=== PATIENT | male | born 1980 | race Caucasian/White ===

== ENCOUNTER 2020-10-18 00:52 | Outpatient (CLI) | payer BC, SELFPAY ==
[2020-10-18 18:38] LABS: SARS-CoV-2 RNA PCR Negative
== END 2020-10-18 00:53 | disposition home or self-care (01) ==
LOC: ANHCOVIDDT 00:52
PROVIDERS: PCP Emergency Medicine; Visit Provider Internal Medicine Critical Care Medicine
DX: U07.1 COVID-19 (principal)
CPT/HCPCS: C9803; U0003

== ENCOUNTER 2020-10-21 09:47 | Outpatient (CLI) | payer BC, SELFPAY ==
--- NOTE | 2020-11-08 10:59 | WPDSLEEPSTUD ---
Sleep Study Date of Study: 10/21/20 Ordering Provider: Brenda Martin MD Interpreting Physician: Brenda Martin MD Sleep Study Type: CPAP Titration Height: 1.78 m Weight: 125.191 kg Body Mass Index: 39.6 Neck Circumference: 46.99 cm [place]: 15 Reason for Sleep Study Obstructive sleep apnea on CPAP, needs repeat titration Sleep History Holland Oh is a 40-year-old male who has a history of sleep apnea and has been on CPAP in the past. He has difficulty falling asleep, he has excessive daytime sleepiness and difficulty waking up in the morning. There is a positive family history with his father also being treated for sleep apnea. He constantly snores and is constantly loud enough that others complain about it. He occasionally awakens at night with heartburn, belching or coughing. He never awakens from sleep feeling short of breath. He does not have trouble sleeping with a cold. He rarely wakes up gasping for breath at night. his complains about his snoring. He constantly sweats excessively at night. He does not notice his heart pounding or beating irregularly night. He frequently falls asleep during the day, occasionally involuntarily but never while driving. He does not fall asleep while exerting physical effort. He does not have loss of muscle tone with strong emotion or have daytime difficulties due to excessive sleepiness. 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 He does not feel paralyzed on waking or falling asleep. He occasionally has vivid dreamlike scenes upon awakening or falling asleep. He is not afraid to go to sleep. He denies having nightmares. He frequently remembers his dreams. He occasionally has racing thoughts. He frequently feels sad depressed and anxious. He does not have muscular tension. He occasionally notices parts of his body jerking. He does not know if he kicks at night. He rarely has crawling and aching feelings in his legs at night. He does not have any kind of leg pain at night. He denies morning jaw pain and does not grind his teeth during sleep. He constantly is bothered by pain during the day. He has never awakened by pain at night. He rarely wakes up feeling stiff in the morning. He does not have sore achy muscles in the morning. He rarely has pain in the neck and spine on waking. He has fatigue, sexual problems and depression. Normal bedtime is between 11:30 p/m/ and 12:00 midnight falling asleep within an hour, waking up at maximum 2 times at night but sometimes he does not wake up at all overnight. He goes to the bathroom when he does wake at night. He wakes at 6:00 a.m. during the week. On weekends, he goes to bed between 10:00 - 10:30 p.m. waking at 6:00 a.m. on Saturdays and waking at 10:00 a.m. on Sundays. He takes naps in the afternoon or evening. A short nap is not refreshing. He is usually drowsy in the morning for 1 hour or longer. He feels better in the afternoon compared other times of day. Habits: tobacco 1 pack per day. Caffeine 3 per day, energy drinks or sodas. he does not drink alcohol. He does not use recreational drugs. [facility] Past Medical History Medical History (Updated 11/08/20 @ 11:21 by Brenda Martin MD) GERD (gastroesophageal reflux disease) High cholesterol Hyperlipidemia with low HDL Hypertriglyceridemia Obesity Obstructive sleep apnea Surgical History Surgical History (Updated 11/08/20 @ 11:19 by Brenda Martin MD) History of thumb surgery Right thumb, tumor removed Family History Family History (Updated 11/08/20 @ 11:03 by Brenda Martin MD) Father Diabetes mellitus Patient's father is in good health Family history of coronary artery disease Family history of neuropathy Obstructive sleep apnea Social History Social History Smoking status: Current every day smoker Alcohol intake: never Medications Home Medications Medication Instructions Recorded Con
[2020-11-08 11:34] VITALS: BMI 39.6
== END 2020-10-21 09:48 | disposition home or self-care (01) ==
LOC: ANHCSM 09:50
PROVIDERS: PCP Emergency Medicine; Visit Provider Internal Medicine Critical Care Medicine
DX: G47.33 Obstructive sleep apnea (adult) (pediatric) (principal); Z99.89 Dependence on other enabling machines and devices
CPT/HCPCS: 95811

== ENCOUNTER 2021-02-12 15:16 | Observation (INO) | payer BC, SELFPAY ==
[2021-02-12] VITALS (21 sets, daily range): BP systolic 115–153; BP diastolic 69–91; PULSE 65–85; RESP 16–23; TEMP 36.2–36.6; O2SAT 92–98; BMI 39.6
--- NOTE | ~2021-02-12 | XR_ITS ---
EXAMINATION: XR chest 2V DATE: 02/12/2021 17:01 INDICATION: Left-sided chest pain TECHNIQUE: PA and lateral views of the chest were obtained. COMPARISON: Chest radiograph dated 11/11/2018 FINDINGS: The lungs remain clear with no focal airspace opacities, pulmonary edema, pleural effusion or pneumot horax. The cardiomediastinal silhouette is normal. Mild thoracic spondylosis. IMPRESSION: 1. No acute cardiopulmonary disease. Reviewed, dictated and finalized at location A.
--- NOTE | 2021-02-12 16:27 | ECG_ITS ---
Measurements Intervals [place] Rate: 70 P: 43 DE: 153 QRS: 21 QRSD: 94 T: 37 QT: 366 QTc: 395 Interpretive Statements SINUS RHYTHM DELAYED PRECORDIAL R/S TRANSITION BORDERLINE ECG Electronically Signed On 02-12-2021 17:58:38 CDT by Santos Roy D.O.
[2021-02-12 16:44] LABS: Basophils Absolute Auto 0.1 K/mm3 (0.0-0.1); Basophils Percent Auto 0.5 % (0.2-1.2); Eosinophils Absolute Auto 0.5 K/mm3 (0-0.3); Eosinophils Percent Auto 4.6 % (0-4.4); Hemoglobin 14.1 g/dL (14.0-18.0); Immature Granulocyte Absolute 0.01 K/mm3 (0.00-0.031); Immature Granulocyte Percent A 0.1 % (0-0.5); Lymphocytes Absolute Auto 3.82 K/mm3 (0.9-3.2); Lymphocytes Percent Auto 36.3 % (18.3-44.2); Mean Corpuscular HGB Conc 32.8 g/dl (32-36); Mean Corpuscular Hemoglobin 27.8 pg (26-34); Mean Corpuscular Volume 84.6 fl (80-100); Mean Platelet Volume 9.3 fl (7.4-10.4); Monocytes Absolute Auto 0.8 K/mm3 (0.1-0.6); Monocytes Percent Auto 7.8 % (2.6-8.5); Neutrophils Absolute Auto 5.4 K/mm3 (1.3-6.7); Neutrophils Percent Auto 50.7 % (45.5-73.1); Platelet Count Result 266 k/mm3 (150-375); Red Blood Count 5.08 M/mm3 (4.6-6.20); Red Cell Distribution Width 13.8 % (11.5-14.5); White Blood Count 10.5 K/mm3 (4.5-10.0)
[2021-02-12 16:53] LABS: Anion Gap 4 mmol/L (8-16); Blood Urea Nitrogen 16 mg/dL (9-20); Calcium 9.3 mg/dL (8.4-10.2); Carbon Dioxide 31 mmol/L (22-30); Chloride 107 mmol/L (98-107); Estimated CRCL calculation 127 ml/min; Estimated Glomerular Filt Rate > 60; Glucose 101 mg/dL (75-110); Sodium 142 mmol/L (137-145)
[2021-02-12 17:05] LABS: Troponin I < 0.012 ng/mL (0.000-0.034)
[2021-02-12 17:57] LABS: Prothrombin Time 13.5 Seconds (11.1-14.7)
[2021-02-12 17:59] LABS: Partial Thromboplastin Time 29.1 SECONDS (22.3-36.8)
--- NOTE | 2021-02-12 19:37 | ED.CHESTPAIN ---
HPI - Chest Pain General Chief Complaint: Chest Pain Stated Complaint: CPx3 days Time Seen by Provider: 02/12/21 17:51 Source: patient, EMS and RN notes reviewed Mode of arrival: EMS Limitations: no limitations History of Present Illness HPI narrative: Patient is 41 years old white male came to the emergency room by ambulance from work because of a localized retrosternal chest discomfort like squeezing. Intermittent for the last 3 days, usually last for a few seconds, get worse sometimes when he bends over and stands up suddenly, coughing, when he tried to pull his chest wall or respiratory cough. Patient denies any fever, chills, nausea, vomiting. Patient going through a lot of stress lately. History of hypertension, hyperlipidemia, tobacco use, strong family history of coronary artery disease in his father and grandfather. Patient also have a history of sleep apnea scheduled to be on BiPAP . Related Data Home Medications Medication Instructions Recorded Confirmed lisinopril 30 mg PO DAILY 02/12/21 rosuvastatin 40 mg PO DAILY 02/12/21 sertraline [Zoloft] 50 mg PO DAILY 02/12/21 Allergies Allergy/AdvReac Type Severity Reaction Status Date / Time No Known Allergies Allergy Verified 02/12/21 17:53 Review of Systems Review of Systems: Narrative: CONSTITUTIONAL: Denies fever, chills, or sweats. EYES: Denies visual changes, redness, or discharge. ENT: Denies rhinorrhea, congestion, sore throat, or otalgia. CARDIOVASCULAR: Denies chest pain, palpitations, or edema. RESPIRATORY: Denies cough or dyspnea. GASTROINTESTINAL: Denies abdominal pain, nausea, vomiting, or diarrhea. GENITOURINARY: Denies dysuria or hematuria. SKIN: Denies rash or itching. MUSCULOSKELETAL: Denies back pain, joint pain, or myalgia. NEUROLOGIC: Denies headache, numbness, or weakness. PSYCHIATRIC: Denies anxiety or depression. [facility] Past Medical History Medical History GERD (gastroesophageal reflux disease) High cholesterol Hyperlipidemia with low HDL Hypertriglyceridemia Obesity Obstructive sleep apnea Surgical History Surgical History History of thumb surgery Right thumb, tumor removed Family History Family History Father Diabetes mellitus Patient's father is in good health Family history of coronary artery disease Family history of neuropathy Obstructive sleep apnea Social History Social History Smoking status: Current every day smoker Alcohol intake: never Gender identity (if verbalized by the patient): Male Exam Narrative: Exam Narrative: General appearance: Well-developed, well-nourished Skin: Normal color Head: Normocephalic, nontraumatic Eyes: Clear conjunctiva ENT: Oropharynx normal, ears normal, nose normal Neck: Supple, nontender Chest and respiratory: Airway patent, no respiratory distress, no accessory muscle use Heart: Regular rate/rhythm Abdomen: Soft, nontender, no organomegaly, quiet bowel sounds Vascular: Normal peripheral pulses, normal capillary refill. Musculoskeletal: Normal range of motion, nontender back Neurologic: Alert and oriented ?3, PUBLIC RELATIONS WRITER is normal as tested, no gross motor deficit Course Course Emergency Course: Stable Vital Signs Vital signs: Vital Signs Temperature 36.2 C L 02/12/21 16:29 Pulse Rate 79 02/12/21 16:29 Respiratory Rate 16 02/12/21 16:29 Pulse Oximetry 96 02/12/21 16:29 Temperature 36.2 C L 02/12/21 16:29 Pulse Rate 68 02/12/21 19:07 Respiratory Rate 16 02/12
--- NOTE | 2021-02-12 19:53 | PC.NURSE ---
called Hakan in lab to add on ddimer
[2021-02-12 20:15] LABS: D Dimer 0.25 ug/mL (<0.48)
[2021-02-12 20:40] LABS: Troponin I < 0.012 ng/mL (0.000-0.034)
[2021-02-12] MEDS: METOPROLOL TARTRATE 50 MG TAB 25 MG PO (20:56)
[2021-02-12] MEDS: ASPIRIN 325 MG TABLET PO (20:56)
--- NOTE | 2021-02-12 22:25 | ECG_ITS ---
Measurements Intervals [place] Rate: 65 P: 39 [place]: 167 QRS: 28 QRSD: 92 T: 18 QT: 396 QTc: 413 Interpretive Statements SINUS RHYTHM BASELINE ARTIFACT- V1 NORMAL ECG Electronically Signed On 02-13-2021 7:12:59 CDT by Santos Roy D.O.
[2021-02-12 22:56] LABS: Troponin I < 0.012 ng/mL (0.000-0.034)
[2021-02-13] VITALS (8 sets, daily range): BP systolic 123–143; BP diastolic 75–83; PULSE 52–113; RESP 18–22; TEMP 36.3–36.6; O2SAT 92–97
--- NOTE | 2021-02-13 08:06 | PC.NURSE ---
Pt to stress echo via wheelchair
--- NOTE | 2021-02-13 08:30 | EST_ITS ---
Patient Info Name: Holland Oh Age: 41 years : 1980 Gender: Male Ht: 70 in Wt: 276 lbs BSA: 2.54 m2 Technical Quality: Good Exam Date: 02/13/2021 7:54 AM Exam Location: [facility] Card Pulmonary Patient Status: Inpatient Admit Date: 02/12/2021 Staff Ordering Physician: Fer Barragan MD ([facility]) Tracer Bullet Section Supervisor: Kaykay Vaughan RDCS Attending Provider: dr. barragan Exercise Technologist: Dennise Lopez CT Exercise Physician: Fer Barragan MD Exam Type: CA stress echo Study Info Indications R07.9 - Chest pain, unspecified Treadmill exercise stress echocardiogram is performed. Summary 1. Patient exercised on Jesu Protocol for 8 minutes and 13 seconds achieving 10 METs. 2. Heart rate was 58 at rest and increased to 144 at peak exercise which is 80% of max predicted heart rate. 3. BP was 115/73 at rest, increased to 201/68 at peak exercise. 4. Resting EKG showed normal sinus rhythm with no ST/T changes. Sinus tachycardia noted at peak exercise and at recovery with no significant changes from baseline EKG. 5. 2D echo at rest showed normal LV systolic function with EF 60-65%.. No regional wall motion changes noted at peak exercise with augmentation of LV systolic function to EF 70-75%. 6. In Summary: Stress test is negative for ischemia by EKG and 2D echocardiogram criteria at 80% of max predicted heart rate. Below average exercise tolerance for age. Exaggerated hypertensive response to exercise. No exercise induced arrhythmias. Protocol: Jesu Stress ECG Details Stage: REST Duration (min): 12 min : 42 sec Speed (mph): 0.0 Grade (%): 0 HR (bpm): 57 SBP (mmHg): 114 DBP (mmHg): 73 METS: --- Stage: REST Duration (min): 21 min : 56 sec Speed (mph): 0.0 Grade (%): 0 HR (bpm): 67 SBP (mmHg): 114 DBP (mmHg): 73 METS: --- Stage: STAGE 1 Duration (min): 1 min : 0 sec Speed (mph): 1.7 Grade (%): 10 HR (bpm): 96 SBP (mmHg): 114 DBP (mmHg): 73 METS: --- Stage: STAGE 1 Duration (min): 2 min : 0 sec Speed (mph): 1.7 Grade (%): 10 HR (bpm): 104 SBP (mmHg): 114 DBP (mmHg): 73 METS: --- Stage: STAGE 1 Duration (min): 3 min : 0 sec Speed (mph): 1.7 Grade (%): 10 HR (bpm): 108 SBP (mmHg): 131 DBP (mmHg): 87 METS: --- Stage: STAGE 2 Duration (min): 1 min : 0 sec Speed (mph): 2.5 Grade (%): 12 HR (bpm): 115 SBP (mmHg): 131 DBP (mmHg): 87 METS: --- Stage: STAGE 2 Duration (min): 2 min : 0 sec Speed (mph): 2.5 Grade (%): 12 HR (bpm): 122 SBP (mmHg): 133 DBP (mmHg): 58 METS: --- Stage: STAGE 2 Duration (min): 3 min : 0 sec Speed (mph): 2.5 Grade (%): 12 HR (bpm): 126 SBP (mmHg): 133 DBP (mmHg): 58 METS: --- Stage: STAGE 3 Duration (min): 1 min : 0 sec Speed (mph): 3.4 Grade (%): 14 HR (bpm): 136 SBP (mmHg): 167 DBP (mmHg): 61 METS: --- Stage: STAGE 3 Duration (min): 2 min : 0 sec Speed (mph): 0.0 Grade (%): 0 HR (bpm)
--- NOTE | 2021-02-13 08:42 | PM.IMHP ---
H&P: HPI History of Present Illness Date/Time: 02/13/21 08:42 41 y/o male with no known cardiac disease however risk factors of obesity, HTN, HLD and active tobacco abuse who presented with chest pain He had on and off chest pain for few days that feels like squeezing sensation in one point of left side of chest. Pain is not necessarily exertional and usually very short lasting however he had longer episode yesterday while at work so he decided to seek medical attention. In ER his chest pain was 7/10. This morning pain persists but down to 2-3/10. He denies dyspnea, diaphoresis or nausea EKG shows normal sinus rhythm with no ST/T changes. Trop negative X3 He had similar symptoms around 2013 and underwent LHC at [facility] [place] that he reports to be normal Smokes 1 pack a day His father had MS in his 40s. Chief Complaint: Chest pain Review of Systems Review of Systems: All systems reviewed & are unremarkable except as noted in HPI and below Constitutional: Constitutional: Denies fatigue and Denies headache(s) Eyes: Eyes: Denies blurry vision ENT: Reports Normal hearing present and Denies headache(s) Cardiovascular: Cardiovascular: Denies chest pain, Denies diaphoresis, Denies pedal edema, Denies leg edema, Denies lightheadedness, Denies palpitations and Denies dyspnea Respiratory: Respiratory: Denies cough and Denies dyspnea Gastrointestinal: Gastrointestinal: Denies abdominal pain Musculoskeletal: Musculoskeletal: Denies back pain Neurologic: Reports Normal hearing present and Denies headache(s) Psychiatric: Psychiatric: Denies anxiety Endocrine: Endocrine: Denies fatigue and Denies palpitations PMF Past Medical History Medical History GERD (gastroesophageal reflux disease) High cholesterol Hyperlipidemia with low HDL Hypertriglyceridemia Obesity Obstructive sleep apnea Surgical History Surgical History History of thumb surgery Right thumb, tumor removed Family History Family History (Updated 02/12/21 @ 21:41 by Camila Denney RN) Father Obstructive sleep apnea Diabetes mellitus Patient's father is in good health Family history of coronary artery disease Family history of neuropathy Myocardial infarct Hypercholesteremia Mother COPD (chronic obstructive pulmonary disease) Social History Social History Smoking status: Current every day smoker Tobacco type: cigarettes Alcohol intake: current Substance use: never Substance use type: does not use Living arrangements: other Gender identity (if verbalized by the patient): Male Spiritual care concerns: No Meds Home Medications and Allergies Home Medications Medication Instructions Recorded Confirmed Type lisinopril 30 mg PO DAILY 02/12/21 02/12/21 History naproxen 375 mg PO Q6H PRN 02/12/21 02/12/21 History rosuvastatin 40 mg PO DAILY 02/12/21 02/12/21 History sertraline [Zoloft] 50 mg PO DAILY 02/12/21 02/12/21 History Allergies Allergy/AdvReac Type Severity Reaction Status Date / Time No Known Allergies Allergy Verified 02/12/21 17:53 Vital Signs Vital Signs - 24 hr 02/12/21 16:29 02/12/21 17:29 02/12/21 17:30 Temperature 36.2 C L Pulse Rate 79 67 65 Respiratory Rate 16 18 19 Blood Pressure 135/76 Pulse Oximetry 96 96 96 02/12/21 17:31 02/12/21 17:32 02/12/21 17:45 Temperature Pulse Rate 67 65 74 Respiratory Rate 21 H 20 18 Blood Pressure 133/81 Pulse Oximetry 93 96 96 02/12/21 17:46 02/12/21 17:52 02/12/21 18:00 Temperature Pulse Rate 73 73 71 Respiratory Rate 22 H 20 Blood Pressure 122/80 Pulse Oximetry 95 97 02/12/21 18:01 02/12/21 18:15 02/12/21 18:16 Temperature Pulse Rate 73 85 73 Respiratory Rate 22 H 17 23 H Blood Pressure 131/82 153/91 H Pulse Oximetry 95 95 95 02/12/21 1
--- NOTE | 2021-02-13 08:50 | PM.DS ---
DS: Admitting Diagnosis Admitting Diagnosis Admitting Diagnosis: Chest pain DS: Discharge Diagnosis Discharge Diagnosis (1) Chest pain: Qualifiers: Chest pain type: unspecified Qualified Code(s): R07.9 - Chest pain, unspecified Code(s): R07.9 - Chest pain, unspecified Status: Acute Assessment and Plan: 41 y/o male with no known cardiac disease however risk factors of obesity, HTN,HLD, EZ and active tobacco abuse who presented with chest pain He ruled out for CT by EKG and negative troponin Given risk factors will proceed with stress echocardiogram to assess for ischemia Stress echocardiogram was negative for ischemia (at 80% of max predicted heart rate) He underwent LHC in 2013 at [facility], reported per patient to be normal Patient is stable for discharge with follow up in the office in 1-2 weeks. Consider work up for non cardiac etiologies of chest pain. Consider repeat cath in outpatient settings if symptoms persists Smoking cessation counseling. (2) Hypertension: Code(s): I10 - Essential (primary) hypertension Status: Acute Assessment and Plan: Continue Lisinopril (3) Tobacco abuse: Code(s): Z72.0 - Tobacco use Status: Acute Assessment and Plan: Smoking cessation counseling (4) EZ on CPAP: Code(s): G47.33 - Obstructive sleep apnea (adult) (pediatric); Z99.89 - Dependence on other enabling machines and devices Status: Acute DS: Summary Hospital Course Hospital Course: Referr to assessment and plan Time Spent with Patient Time attestation: Total time spent providing and/or coordinating discharge services: Exam Const: General: no acute distress Eyes: Sclera: sclerae normal Neck: Neck: no JVD Carotids: no bruits Resp: Effort & Inspection: normal respiratory effort Auscultation: clear to auscultation bilaterally Cardio: Rate: regular rate and not tachycardic Rhythm: regular rhythm Heart sounds: no gallops, no murmurs and no rubs Skin: General skin exam: normal color Neuro: Cranial nerves: Yes Normal hearing present Speech: normal speech Extrem: General: normal to inspection and no edema Psych: Affect: normal affect DS: Data Data Completed and Pending Labs on day of discharge: Labs from last 24 hours 02/12/21 02/12/21 02/12/21 22:22 20:11 16:37 WBC RBC Hgb Hct MCV MCH MCHC RDW Plt Count MPV Immature Gran % (Auto) Neut % (Auto) Lymph % (Auto) [place] % (Auto) Eos % (Auto) Baso % (Auto) Lymph # (Auto) [place] # (Auto) Eos # (Auto) Baso # (Auto) Abs Immat Gran (auto) Absolute Neuts (auto) Absolute Nucleated RBC Nucleated RBC % PT INR APTT D-Dimer Sodium 142 Potassium 4.0 Chloride 107 Carbon Dioxide 31 H Anion Gap 4 L BUN 16 Creatinine 0.90 Estim Creat Clear Calc 127 Estimated GFR > 60 Glucose 101 Calcium 9.3 Troponin I < 0.012 < 0.012 < 0.012 02/12/21 02/12/21 16:37 16:37 WBC 10.5 H RBC 5.08 Hgb 14.1 Hct 43.0 MCV 84.6 MCH 27.8 MCHC 32.8 RDW 13.8 Plt Count 266 MPV 9.3 Immature Gran % (Auto) 0.1 Neut % (Auto) 50.7 Lymph % (Auto) 36.3 [place] % (Auto) 7.8 Eos % (Auto) 4.6 H Baso % (Auto) 0.5 Lymph # (Auto) 3.82 H [place] # (Auto) 0.8 H Eos # (Auto) 0.5 H Baso # (Auto) 0.1 Abs Immat Gran (auto) 0.01 Absolute Neuts (auto) 5.4 Absolute Nucleated RBC 0.0 Nucleated RBC % 0.0 PT 13.5 INR 1.0 APTT 29.1 D-Dimer 0.25 Sodium Potassium Chloride Carbon Dioxide Anion Gap BUN Creatinine Estim Creat Clear Calc Estimated GFR Glucose Calcium Troponin I Discharge Plan Discharge Attending physician on discharge: Fer Brownlee Discharging Clinician: Fer Brownlee Patient Disposition: Home, Self-Care Activity: unlimited Diet: heart healthy Patient Instructio
--- NOTE | 2021-02-13 09:15 | PC.NURSE ---
Pt returned from stress echo with discharge orders in computer
== END 2021-02-13 09:33 | disposition home or self-care (01) ==
LOC: ANHED 19:53 → ANHIMU 20:24
PROVIDERS: Admitting Provider Internal Medicine; Emergency Provider Emergency Medicine; PCP Emergency Medicine; Visit Provider Internal Medicine
DX: R07.9 Chest pain, unspecified (principal); E66.9 Obesity, unspecified; I10 Essential (primary) hypertension; E78.5 Hyperlipidemia, unspecified; G47.33 Obstructive sleep apnea (adult) (pediatric); F17.210 Nicotine dependence, cigarettes, uncomplicated; Z68.39 Body mass index [BMI] 39.0-39.9, adult
CPT/HCPCS: 36415; 71046; 80048; 84484; 85025; 85380; 85610; 85730; 93005; 93351; 99285; A9270; G0378

== ENCOUNTER 2022-07-18 18:18 | Emergency (ER) | payer BC, SELFPAY ==
--- NOTE | ~2022-07-18 | CT_ITS ---
EXAMINATION: CT abdomen pelvis w con DATE: 07/18/2022 19:52 INDICATION: LLQ pain, nausea, r/o divertic TECHNIQUE: Computed tomography (CT) of the abdomen and pelvis was performed with 100 mL Omnipaque-350 intravenous contrast. Automated exposure control and iterative reconstruction technique were employe d. The dose-length product was 1570.24 mGy-cm. COMPARISON: 04/01/2019. FINDINGS: Lower thorax: Unremarkable Liver: Enlarged. Fatty infiltrated. Biliary/Gallbladder: Gallbladder is normal. No bile duct dilation. Pancreas: No mass or duct dilation. Tiny calcification in the pancreatic head. Spleen: Normal. Adrenals:No mass. Kidneys: No mass, stone, or hydronephrosis. GI tract: No small or large bowel dilation. Normal appendix. Minimal scattered diverticuli. Short seg ment pericolonic wall thickening in the descending colon with inflammation of adjacent diverticula an d fluid in the paracolic gutter. Mesentery/Peritoneum: No ascites, mass, or free air. Retroperitoneum: No mass. Atherosclerotic abdominal aortic and/or arterial calcifications. Pelvis: Pelvic organs are within normal limits. Soft Tissues: Soft tissues and body wall unremarkable. Bones: No acute osseous finding. IMPRESSION: Acute uncomplicated diverticulitis involving the mid descending colon. Hepatomegaly and steatosis. Reviewed, dictated and finalized at location K. IMPRESSION: Acute uncomplicated diverticulitis involving the mid descending colon. Hepatome fuad and steatosis.
[2022-07-18 18:31] VITALS: BP 152/83; PULSE 107; RESP 20; TEMP 37.4; O2SAT 97
--- NOTE | 2022-07-18 18:56 | ED.ABDPAIN ---
HPI - Abdominal Pain General Chief Complaint: Abdominal Pain Stated Complaint: left abdominal pain Time Seen by Provider: 07/18/22 18:54 Source: patient Mode of arrival: ambulatory Limitations: no limitations History of Present Illness HPI narrative: Patient is a 42-year-old male who presents to the ED with report of left-sided abdominal pain. Patient reports he woke up this morning with pain in his left abdomen. Worse with any type of movement, coughing, driving over bumps on the way here. He has not tried anything for pain today. Never had pain like this before. Denies history of kidney stones or diverticulitis. No previous colonoscopy. He also reports having some nausea, but denies vomiting, fever, diarrhea, constipation, rectal bleeding, dysuria, hematuria. Last bowel movement this morning and normal. Related Data Home Medications Medication Instructions Recorded Confirmed rosuvastatin 40 mg tablet 40 mg PO DAILY 02/12/21 06/30/22 cyclobenzaprine 10 mg tablet 10 mg PO TID 06/30/22 06/30/22 Allergies Allergy/AdvReac Type Severity Reaction Status Date / Time No Known Allergies Allergy Verified 07/18/22 18:56 Review of Systems Review of Systems: CONSTITUTIONAL: Denies fever, chills, or sweats. CARDIOVASCULAR: Denies chest pain. RESPIRATORY: Denies cough or dyspnea. GASTROINTESTINAL: Reports left-sided abdominal pain. Denies constipation, rectal bleeding, nausea, vomiting, or diarrhea. GENITOURINARY: Denies dysuria or hematuria. All systems reviewed & are unremarkable except as noted in HPI and below PMFSH Past Medical History Medical History GERD (gastroesophageal reflux disease) High cholesterol Hyperlipidemia with low HDL Hypertriglyceridemia Obesity Obstructive sleep apnea Surgical History Surgical History History of thumb surgery Right thumb, tumor removed Family History Family History Father Obstructive sleep apnea Diabetes mellitus Patient's father is in good health Family history of coronary artery disease Family history of neuropathy Myocardial infarct Hypercholesteremia Mother COPD (chronic obstructive pulmonary disease) Social History Social History Social History: He has 6 biologic kids 2 with his current . They are all in good health. 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 Gender identity (if verbalized by the patient): Male Spiritual care concerns: No Exam Narrative: GENERAL: Well appearing, morbidly obese, non-toxic, in no acute distress. HEAD: Normocephalic, atraumatic. NECK: Supple. No adenopathy, no masses. RESPIRATORY: Airway patent, respirations nonlabored. Clear to auscultation bilaterally, occasional expiratory wheeze. CARDIOVASCULAR: Tachycardic with regular rhythm without murmurs, rubs, or gallops. Peripheral pulses 2+ and equal bilaterally. ABDOMINAL: Soft, diffuse tenderness throughout left-sided abdomen, worst in left lower quadrant, nondistended, no hepatosplenomegaly. Normoactive BS. MUSCULOSKELETAL: Moves all extremities. Strength/ROM intact without gross deformities. SKIN: Warm, dry, normal color. No rashes. NEURO: A&O X3. Speech clear. Cranial nerves II-XII grossly intact. Steady gait. No ataxic movements. PSYCHIATRIC: Appropr
[2022-07-18] MEDS: ONDANSETRON INJ 4 MG/2 ML VIAL IV PUSH (19:17)
[2022-07-18 19:18] LABS: Basophils Absolute Auto 0.1 K/mm3 (0.0-0.1); Basophils Percent Auto 0.4 % (0.2-1.2); Eosinophils Absolute Auto 0.2 K/mm3 (0-0.3); Hematocrit 44.5 % (42.0-52.0); Hemoglobin 14.7 g/dL (14.0-18.0); Immature Granulocyte Absolute 0.08 K/mm3 (0.00-0.031); Immature Granulocyte Percent A 0.5 % (0-0.5); Lymphocytes Absolute Auto 2.33 K/mm3 (0.9-3.2); Lymphocytes Percent Auto 13.1 % (18.3-44.2); Mean Corpuscular Hemoglobin 28.2 pg (26-34); Mean Corpuscular Volume 85.4 fl (80-100); Mean Platelet Volume 9.4 fl (7.4-10.4); Monocytes Absolute Auto 1.4 K/mm3 (0.1-0.6); Neutrophils Absolute Auto 13.6 K/mm3 (1.3-6.7); Platelet Count Result 300 k/mm3 (150-375); Red Blood Count 5.21 M/mm3 (4.6-6.20); Red Cell Distribution Width 14.6 % (11.5-14.5); White Blood Count 17.7 K/mm3 (4.5-10.0)
[2022-07-18] MEDS: MORPHINE SULFATE (*CRX) 4 MG/ML INJ IV PUSH ×2 (19:18→21:13)
[2022-07-18 19:27] LABS: Alanine Aminotransferase 45 U/L (6-50); Albumin Level 4.6 g/dL (3.5-5.1); Alkaline Phosphatase 66 U/L (38-126); Anion Gap 10 mmol/L (8-16); Aspartate Amino Transferase 34 U/L (17-59); Bilirubin,Total 0.8 mg/dL (0.2-1.3); Blood Urea Nitrogen 11 mg/dL (9-20); Calcium 9.1 mg/dL (8.4-10.2); Carbon Dioxide 27 mmol/L (22-30); Chloride 103 mmol/L (98-107); Estimated CRCL calculation 167 ml/min; Estimated Glomerular Filt Rate > 60; Glucose 112 mg/dL (65-110); Lipase 65 U/L (23-300); Potassium 4.3 mmol/L (3.4-5.0); Sodium 140 mmol/L (137-145)
[2022-07-18 19:55] LABS: Lactic Acid Reflex 1.4 mmol/L (0.7-2.0)
[2022-07-18] MEDS: SODIUM CHLORIDE 0.9% IV 1,000 ML 999 ML IV CONT (20:14)
[2022-07-18 20:30] LABS: Appearance Urine Clear (Clear); Bilirubin Urine Negative (Negative); Blood Urine Negative (Negative); Color Urine Yellow (Yellow); Glucose Urine UA Negative (Negative); Ketones Urine Negative (Negative); Leukocyte Esterase Ur Negative LEU/UL (Negative); Nitrate Urine Negative (Negative); Protein Urine Negative (Negative); Specific Grav Ur 1.015 (1.001-1.035); Urobilinogen Urine 0.2 mg/dL (<2.0); pH Urine 7.5 (5.0-9.0)
[2022-07-18 20:35] LABS: Bacteria Urine Trace /hpf; Mucus Urine Rare /lpf; RBC Urine 0-2 /hpf (0-2); Squamous Epithelial Cell Urine Rare /hpf (Few); WBC Urine 0-3 /hpf
[2022-07-18 20:36] LABS: Add Urine Microscopic? NO
[2022-07-18 21:43] VITALS: BP 141/84; PULSE 90; RESP 16; O2SAT 98
[2022-07-18] MEDS: CIPROFLOXACIN 500 MG TAB PO (22:18)
[2022-07-18] MEDS: metroNIDAZOLE 250 MG TABLET 500 MG PO (22:18)
== END 2022-07-18 22:47 | disposition home or self-care (01) ==
PROVIDERS: Physician Assistant; Emergency Provider Emergency Medicine; PCP Family Medicine
DX: K57.32 Diverticulitis of large intestine without perforation or abscess without bleeding (principal); E78.5 Hyperlipidemia, unspecified; E78.1 Pure hyperglyceridemia; G47.33 Obstructive sleep apnea (adult) (pediatric); K21.9 Gastro-esophageal reflux disease without esophagitis; E66.9 Obesity, unspecified; Z68.41 Body mass index [BMI] 40.0-44.9, adult; F17.210 Nicotine dependence, cigarettes, uncomplicated
CPT/HCPCS: 36415; 74177; 80053; 81003; 83605; 83690; 85025; 87040; 96361; 96374; 96375; 96376; 99284; A9270; J2270; J2405; J7030; Q9967

== ENCOUNTER 2022-07-22 16:48 | Emergency (ER) | payer BC, SELFPAY ==
--- NOTE | ~2022-07-22 | CT_ITS ---
EXAMINATION: CT abdomen pelvis w con DATE: 07/22/2022 21:21 INDICATION: LLQ pain, recent dx of diverticulitis TECHNIQUE: Computed tomography (CT) of the abdomen and pelvis was performed with 100 mL Omnipaque-350 intravenous contrast. Automated exposure control and iterative reconstruction technique were employe d. The dose-length product was 1654.74 mGy-cm. COMPARISON: 07/18/2022. FINDINGS: Lower thorax: Unremarkable Liver: Enlarged. Fatty infiltrated. Biliary/Gallbladder: Gallbladder is normal. No bile duct dilation. Pancreas: No mass or duct dilation. Focal calcification in the pancreatic head. Spleen: Normal. Adrenals:No mass. Kidneys: No mass, stone, or hydronephrosis. GI tract: No small or large bowel dilation. Normal appendix. Similar short segment mid descending col onic wall thickening with inflammatory changes surrounding a posteriorly directed diverticulum. Infla mmatory fluid in the left paracolic gutter, overall similar volume with extension of some fluid into more inferior peritoneal reflections. Mesentery/Peritoneum: No ascites, mass, or free air. Retroperitoneum: No mass. Atherosclerotic abdominal aortic and/or arterial calcifications. Pelvis: Pelvic organs are within normal limits. Soft Tissues: Gynecomastia. Bones: No acute osseous finding. IMPRESSION: Redemonstration of uncomplicated mid descending colonic diverticulitis. No pneumoperitoneum. No rim-e nhancing fluid collection to suggest abscess. Hepatomegaly and steatosis. Reviewed, dictated and finalized at location K. IMPRESSION: Redemonstration of uncomplicated mid descending colonic diverticulitis. No pneu moperitoneum. No rim-enhancing fluid collection to suggest abscess. Hepatomegal y and steatosis.
[2022-07-22 17:31] VITALS: BP 150/85; PULSE 80; RESP 16; TEMP 37.1; O2SAT 98
[2022-07-22 17:53] LABS: Basophils Percent Auto 0.4 % (0.2-1.2); Eosinophils Absolute Auto 0.3 K/mm3 (0-0.3); Eosinophils Percent Auto 2.6 % (0-4.4); Hematocrit 39.5 % (42.0-52.0); Immature Granulocyte Absolute 0.05 K/mm3 (0.00-0.031); Immature Granulocyte Percent A 0.5 % (0-0.5); Lymphocytes Absolute Auto 2.89 K/mm3 (0.9-3.2); Lymphocytes Percent Auto 29.3 % (18.3-44.2); Mean Corpuscular HGB Conc 32.9 g/dl (32-36); Mean Corpuscular Volume 85.1 fl (80-100); Monocytes Absolute Auto 0.8 K/mm3 (0.1-0.6); Monocytes Percent Auto 8.1 % (2.6-8.5); Neutrophils Absolute Auto 5.8 K/mm3 (1.3-6.7); Neutrophils Percent Auto 59.1 % (45.5-73.1); Platelet Count Result 341 k/mm3 (150-375); Red Blood Count 4.64 M/mm3 (4.6-6.20); Red Cell Distribution Width 14.4 % (11.5-14.5); White Blood Count 9.9 K/mm3 (4.5-10.0)
[2022-07-22 18:05] LABS: INR 1.1
[2022-07-22 18:06] LABS: Alanine Aminotransferase 36 U/L (6-50); Albumin Level 4.4 g/dL (3.5-5.1); Alkaline Phosphatase 54 U/L (38-126); Anion Gap 13 mmol/L (8-16); Aspartate Amino Transferase 29 U/L (17-59); Bilirubin,Total 0.4 mg/dL (0.2-1.3); Blood Urea Nitrogen 10 mg/dL (9-20); Calcium 9.5 mg/dL (8.4-10.2); Carbon Dioxide 27 mmol/L (22-30); Chloride 100 mmol/L (98-107); Estimated CRCL calculation 148 ml/min; Estimated Glomerular Filt Rate > 60; Glucose 118 mg/dL (65-110); Partial Thromboplastin Time 31.4 SECONDS (22.3-36.8); Potassium 3.5 mmol/L (3.4-5.0); Sodium 140 mmol/L (137-145)
--- NOTE | 2022-07-22 20:30 | ED.GIBLEED ---
HPI - GI Bleed General Chief complaint: GI Bleed Stated complaint: blood in stool Time Seen by Provider: 07/22/22 20:12 History of Present Illness HPI Narrative: 42yoM p/w c/f dark/reddish stools today, he has been treated for diverticulitis diagnosed several days ago, states that on the whole he is left lower quadrant pain has been improving but he was worried about the dark stools. 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 He does state that he has been eating a lot of orange Jell-O and red popsicles. Related Data Home Medications Medication Instructions Recorded Confirmed rosuvastatin 40 mg tablet 40 mg PO DAILY 02/12/21 07/21/22 cyclobenzaprine 10 mg tablet 10 mg PO TID 06/30/22 07/21/22 Allergies Allergy/AdvReac Type Severity Reaction Status Date / Time No Known Allergies Allergy Verified 07/20/22 10:38 Review of Systems Review of Systems: CONST: No fever. HEENT: No sore throat C/V: No chest pain RESP: No cough GI: Reports abdominal pain, nausea, dark/reddish stools : No dysuria. M/S: No joint pain. SKIN: No rash. NEURO: [No headache or focal numbness or weakness] PSYCH: [No depression] [facility] Past Medical History Medical History GERD (gastroesophageal reflux disease) High cholesterol Hyperlipidemia with low HDL Hypertriglyceridemia Obesity Obstructive sleep apnea Surgical History Surgical History History of thumb surgery Right thumb, tumor removed Family History Family History Father Obstructive sleep apnea Diabetes mellitus Patient's father is in good health Family history of coronary artery disease Family history of neuropathy Myocardial infarct Hypercholesteremia Mother COPD (chronic obstructive pulmonary disease) Social History Social History Social History: He has 6 biologic kids 2 with his current . They are all in good health. 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 Gender identity (if verbalized by the patient): Male Spiritual care concerns: No Exam Narrative: EXAMINATION OF ORGAN SYSTEMS/BODY AREAS: Constitutional: Vital signs per nursing GENERAL:[No acute distress, non-toxic appearing.] HEAD: Normal with no signs of head trauma. EYES: EOMI, conjunctiva normal ENT: Hearing grossly intact LUNGS: Nonlabored breathing. HEART: [Regular rate and rhythm] ABD: [Soft], mildly tender to palpation in the left lower quadrant RECTAL: Orangish/red stool that is hemoccult negative EXT: Normal range of motion SKIN: [No rashes or lesions.] NEURO: [Alert and oriented x 3. No gross focal sensory or strength deficits.] PSYCH: Normal affect Course Vital Signs Vital signs: Vital Signs Temperature 98.7 F 07/22/22 17:31 Pulse Rate 80 07/22/22 17:31 Respiratory Rate 16 07/22/22 17:31 Blood Pressure 150/85 H 07/22/22 17:31 Pulse Oximetry 98 07/22/22 17:31 Temperature 98.7 F 07/22/22 17:31 Pulse Rate 80 07/22/22 17:31 Respiratory Rate 16 07/22/22 17:31 Blood Pressure 150/85 H 07/22/22 17:31 Pulse Oximetry 98 07/22/22 17:31 Procedures Stool Hemoccult Stool hemoccult #1: Stool Hemoccult Date: 07/22/22 Stool Hemoccult Time: 20:35 Proc
[2022-07-22] MEDS: DICYCLOMINE HCL 10 MG CAPSULE 20 MG PO (21:01)
[2022-07-22] MEDS: PANTOPRAZOLE SODIUM IV 40 MG VIAL IV PUSH (21:02)
[2022-07-22] MEDS: SODIUM CHLORIDE 0.9% IV 1,000 ML 999 ML IV CONT (21:02)
[2022-07-22 21:59] LABS: Appearance Urine Slightly Cloudy (Clear); Bilirubin Urine 1+ (Negative); Blood Urine Negative (Negative); Color Urine Yellow (Yellow); Glucose Urine UA Negative (Negative); Ketones Urine Negative (Negative); Leukocyte Esterase Ur Trace LEU/UL (Negative); Nitrate Urine Negative (Negative); Protein Urine Negative (Negative); Urobilinogen Urine 0.2 mg/dL (<2.0)
[2022-07-22 22:01] VITALS: BP 129/78; O2SAT 96
[2022-07-22 22:02] VITALS: O2SAT 97
[2022-07-22 22:06] LABS: Mucus Urine Moderate /lpf; RBC Urine 0-2 /hpf (0-2); WBC Urine 0-3 /hpf
[2022-07-22 22:16] LABS: Add Urine Microscopic? YES
[2022-07-22 22:35] VITALS: BP 117/78; PULSE 73; RESP 18; O2SAT 98
== END 2022-07-22 22:36 | disposition home or self-care (01) ==
PROVIDERS: Emergency Medicine; Emergency Provider Emergency Medicine; PCP Family Medicine
DX: K57.32 Diverticulitis of large intestine without perforation or abscess without bleeding (principal); E78.5 Hyperlipidemia, unspecified; E78.1 Pure hyperglyceridemia; K21.9 Gastro-esophageal reflux disease without esophagitis; G47.33 Obstructive sleep apnea (adult) (pediatric); E66.9 Obesity, unspecified; Z68.41 Body mass index [BMI] 40.0-44.9, adult; F17.210 Nicotine dependence, cigarettes, uncomplicated; R16.0 Hepatomegaly, not elsewhere classified; K76.0 Fatty (change of) liver, not elsewhere classified
CPT/HCPCS: 36415; 74177; 80053; 81001; 85025; 85610; 85730; 86850; 86900; 86901; 96361; 96374; 99284; A9270; C9113; J7030; Q9967

== ENCOUNTER → 2022-11-13 15:31 | Outpatient (CLI) | payer BC, SELFPAY ==
--- NOTE | ~2022-11-13 | MR_ITS ---
EXAMINATION: MR brain/brain stem wo con DATE: 11/13/2022 16:19 INDICATION: Syncope. TECHNIQUE: Magnetic resonance imaging (MRI) of the brain and brainstem was performed without intraven ous contrast. COMPARISON: None. FINDINGS: There is no intracranial hemorrhage, acute infarction, or abnormal intracranial mass lesion . The ventricles are normal in size. There is mucosal thickening in the paranasal sinuses. The orbits are normal. The mastoid air cells are normal. IMPRESSION: 1. Normal brain. Reviewed, dictated and finalized at location A. [employer]GER [employer] IMPRESSION: 1. Normal brain.
== END ==
PROVIDERS: PCP Psychiatry & Neurology Neurology; Visit Provider Psychiatry & Neurology Neurology
DX: R55 Syncope and collapse (principal)
CPT/HCPCS: 70551

== ENCOUNTER 2022-11-20 06:45 | Outpatient (CLI) | payer BC, SELFPAY ==
--- NOTE | 2022-11-20 09:58 | WPDNEUROLOGY ---
Neurology EEG Report General Information Date of Study: 11/20/22 TEST Routine EEG DIAGNOSIS Syncope and collapse CONDITION OF RECORDING Awake, drowsy, and asleep. EKG artifact noted throughout recording. EEG NUMBER [id number] CLINICAL HISTORY Patient reports he has been having episodes of coughing until he faints. He is also having intermittent stabbing pain in his head. EEG DESCRIPTION During the awake state with eyes closed the background consists of 10-11 Hz posterior dominant rhythm which attenuates appropriately with eye opening. The recording is continuous. There is a well developed anterior-posterior gradient. No significant asymmetries of background activities are noted. With drowsiness there is was waxing and waning of the dominant rhythm with eventual replacement by a mixture of beta, alpha, and theta activity. As the patient enters stage II sleep, symmetrical spindles are present. Arousal is unremarkable. Photic stimulation did not elicit any abnormal photoparoxysmal response. IMPRESSION This is a normal routine EEG recorded in awake, drowsy, and asleep states. There are no electrographic seizures identified, nor are there any epileptiform discharges. Please note that a normal EEG cannot exclude a seizure disorder. Clinical correlation is recommended.
== END 2022-11-20 06:46 | disposition home or self-care (01) ==
PROVIDERS: PCP Psychiatry & Neurology Neurology; Visit Provider Psychiatry & Neurology Neurology
DX: R55 Syncope and collapse (principal)
CPT/HCPCS: 95816

== ENCOUNTER 2025-09-06 08:27 | Outpatient (CLI) | payer BC, SELFPAY ==
--- NOTE | ~2025-09-06 | CT_ITS ---
EXAMINATION: CT abdomen pelvis wo con DATE: 09/06/2025 08:49 INDICATION: Umbilical hernia without obstruction or gangrene TECHNIQUE: Computed tomography (CT) of the abdomen and pelvis was performed without intravenous contrast. Automated exposure control and iterative reconstruction technique were employed. The dose-length product was 1743.50 mGy-cm. COMPARISON: None FINDINGS: Mild atelectasis at the anteromedial right middle lobe. Heart size is normal. No pericardial or pleural effusion. Heterogeneous pattern of diffuse hepatic steatosis. Gallbladder, spleen, pancreas, bilateral adrenal glands and kidneys are normal. There are few scattered clonic diverticula without adjacent from trace stranding to suggest diverticulitis. Small bowel and appendix are normal. Very small fat-containing umbilical hernia. Bladder is normal. No free intraperitoneal gas or fluid. No pathologically enlarged abdominal or pelvic lymphadenopathy. Mild lumbar and moderate lower thoracic spondylosis. IMPRESSION: 1. Very small fat-containing umbilical hernia. 2. Diffuse hepatic steatosis. Reviewed, dictated and finalized at location A. ADJUSTER
== END 2025-09-06 08:28 | disposition home or self-care (01) ==
PROVIDERS: PCP Family Medicine
DX: K42.9 Umbilical hernia without obstruction or gangrene (principal); K76.0 Fatty (change of) liver, not elsewhere classified
CPT/HCPCS: 74176